=== PATIENT | female | born 1980 | race African-American/Black ===

== ENCOUNTER 2017-02-24 17:22 | Emergency (ER) | payer MEDICAID ==
[~2017-02-24] VITALS: Ht 149.9 cm; Wt 93.0 kg
[~2017-02-24 17:22] MED LIST: INSU100C3 SQ; INSU3INS6 SUBCUT
[2017-02-25] MEDS ORDERED: IBUPROFEN 600MG TABLET PO ONE (01:15)
[2017-02-25 02:22] VITALS: BP 125/67
== END 2017-02-25 02:27 | disposition home or self-care (01) ==
LOC: ER 17:22
DX: M25.562 Pain in left knee (principal); E11.9 Type 2 diabetes mellitus without complications; Z88.3 Allergy status to other anti-infective agents; Z88.0 Allergy status to penicillin; Z88.2 Allergy status to sulfonamides; Z79.4 Long term (current) use of insulin; W01.0XXA Fall on same level from slipping, tripping and stumbling without subsequent striking against object, initial encounter; Y93.89 Activity, other specified; Y92.018 Other place in single-family (private) house as the place of occurrence of the external cause
CPT/HCPCS: 73560; 81025; 99284; Z7610